=== PATIENT | female | born 1955 | race American Indian/Alaskan Native ===

== ENCOUNTER 2016-10-30 08:13 | Outpatient (CLI) | payer BC ==
--- NOTE | 2016-10-30 16:07 | Cat Scan Report ---
CT LUMBAR SPINE WITHOUT CONTRAST: 10/30/16 08:13:00 CLINICAL: Abnormal plain film with a right pedicle abnormality. I do not know the specific level. TECHNIQUE: Volumetric acquisition and 1.25-mm axial scan reconstructions without contrast. Sagittal and coronal reformats were performed. FINDINGS: Normal vertebral body height, alignment and disk spaces. No fracture or subluxation.The pedicles are intact at all levels with no lesion identified. L1-2:Intact disc. There are is an accessory articulation on the left side between the inferior left T12 and superior left L1 facet. This is best identified on the coronal reformat. L2-3:Intact disc. Mild bilateral facet hypertrophy. L3-4:Mild circumferential disc bulge. Bilateral facet hypertrophy and facet joint vacuum disc phenomenon. A degenerative cyst of the right superior L4 facet. L4-5:A moderate sized broad-based central and right foraminal disc protrusion with obliteration of the right neural foramen. Bilateral facet hypertrophy and facet joint vacuum disc phenomenon. L5-S1:Intact. IMPRESSION: 1. No pedicle abnormality identified. 2. Bilateral facet joint arthropathy from L3-4 through L4-5. 3. A moderate sized broad-based central and right foraminal disc protrusion at L4-5 with obliteration of the right neural foramen. 4. 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
== END 2016-10-30 08:14 | disposition home or self-care (01) ==
LOC: SPVIMAG 08:13
PROVIDERS: ATTEND Internal Medicine Rheumatology
DX: M51.26 Other intervertebral disc displacement, lumbar region (principal); M12.88 Other specific arthropathies, not elsewhere classified, other specified site
CPT/HCPCS: 72131

== ENCOUNTER 2016-11-07 14:32 | Outpatient (CLI) | payer BC ==
--- NOTE | 2016-11-08 09:03 | Mammography Report ---
BILATERAL DIGITAL SCREENING MAMMOGRAM with CAD: 11/07/16 14:32:00 CLINICAL: Routine screening.History of bilateral cysts. COMPARISON:02/02/15 FINDINGS: There are bilateral scattered fibroglandular densities. Several new right upper and inner asymmetries require additional imaging.No architectural distortion or suspicious calcifications.The left breast is negative. IMPRESSION: Right asymmetries requiring further workup. BI-RADS CATEGORY: 0 -- Additional Imaging Evaluation Required RECOMMENDATION: Recall for right lateralmedial , spot compression CC and MLO views and right breast ultrasound if needed. ACR BI-RADS MAMMOGRAPHIC CODES: 0 = Needs additional imaging evaluation; 1 = Negative; 2 = Benign; 3 = Probably benign; 4 = Suspicious; 5 = Malignant; 6 = Known biopsy-proven malignancy COMMENT: 1. Dense breast tissue, i.e., adenosis, fibrocystic changes, etc., may obscure an underlying neoplasm. 2. Approximately 10% of cancers are not detected with mammography. 3. A negative mammography report should not delay biopsy if a clinically suspicious mass is present. COMMENT: Patient follow-up letters are generated via our [employer] application.
== END 2016-11-07 14:33 | disposition home or self-care (01) ==
LOC: SPVWC 14:32
PROVIDERS: ATTEND Internal Medicine
DX: Z12.31 Encounter for screening mammogram for malignant neoplasm of breast (principal)
CPT/HCPCS: 77067; G0202

== ENCOUNTER 2016-12-24 08:32 | Outpatient (CLI) | payer BC ==
--- NOTE | 2016-12-24 09:41 | Ultrasound Report ---
RIGHT DIGITAL DIAGNOSTIC MAMMOGRAM and RIGHT BREAST ULTRASOUND: 12/24/16 08:32:00 CLINICAL: Recall for asymmetries. COMPARISON:11/07/16 screening FINDINGS: Spot compression views demonstrate persistent multiple circumscribed densities throughout the breast. Ultrasound of the right breast (including all four quadrants and the retroareolar area) was performed and demonstrated numerous benign cysts in all quadrants. The largest is a bilobed cyst at 11 o'clock 4 cm from the nipple measuring 1.0 x 0.6 x 0.6 cm. No solid mass. IMPRESSION: Benign cysts right breast. BI-RADS CATEGORY: 2 - - Benign RECOMMENDATION: Routine mammographic screening in one year. ACR BI-RADS MAMMOGRAPHIC CODES: 0 = Needs additional imaging evaluation; 1 = Negative; 2 = Benign; 3 = Probably benign; 4 = Suspicious; 5 = Malignant; 6 = Known biopsy-proven malignancy COMMENT: 1. Dense breast tissue, i.e., adenosis, fibrocystic changes, etc., may obscure an underlying neoplasm. 2. Approximately 10% of cancers are not detected with mammography. 3. A negative mammography report should not delay biopsy if a clinically suspicious mass is present. COMMENT: Patient follow-up letters are generated via our [employer] application.
== END 2016-12-24 08:33 | disposition home or self-care (01) ==
LOC: SPVWC 08:32
PROVIDERS: ATTEND Internal Medicine
DX: N60.01 Solitary cyst of right breast (principal); N63 Unspecified lump in breast; N64.89 Other specified disorders of breast
CPT/HCPCS: 76641; G0206

== ENCOUNTER 2018-07-27 10:37 | Outpatient (CLI) | payer BC ==
--- NOTE | 2018-07-27 13:27 | Mammography Report ---
BILATERAL DIGITAL SCREENING MAMMOGRAM with CAD: 07/27/18 10:37:00 CLINICAL: Routine screening.Previously confirmed cysts of the right breast. COMPARISON:11/07/16 and 12/24/16 FINDINGS: The breasts are heterogeneously dense, which may obscure small masses. A partially circumscribed right upper outer focal asymmetry requires additional imaging. Numerous circumscribed densities of the right breast correlate with previously confirmed cysts.No architectural distortion or suspicious calcifications.The left breast is negative. IMPRESSION: Right asymmetry requiring further workup. BI-RADS CATEGORY: 0 -- Additional Imaging Evaluation Required RECOMMENDATION: Recall for right spot magnification MLO and CC views and targeted right breast ultrasound. ACR BI-RADS MAMMOGRAPHIC CODES: 0 = Needs additional imaging evaluation; 1 = Negative; 2 = Benign; 3 = Probably benign; 4 = Suspicious; 5 = Malignant; 6 = Known biopsy-proven malignancy COMMENT: 1. Dense breast tissue, i.e., adenosis, fibrocystic changes, etc., may obscure an underlying neoplasm. 2. Approximately 10% of cancers are not detected with mammography. 3. A negative mammography report should not delay biopsy if a clinically suspicious mass is present. COMMENT: Patient follow-up letters are generated via our [employer] application.
== END 2018-07-27 10:38 | disposition home or self-care (01) ==
LOC: SPVWC 10:37
PROVIDERS: ATTEND Internal Medicine
DX: Z12.31 Encounter for screening mammogram for malignant neoplasm of breast (principal)
CPT/HCPCS: 77067

== ENCOUNTER 2019-02-24 09:30 | Outpatient (CLI) | payer BC ==
--- NOTE | 2019-02-24 10:48 | Ultrasound Report ---
RIGHT DIGITAL DIAGNOSTIC MAMMOGRAM WITHOUT CAD RIGHT LIMITED BREAST ULTRASOUND INDICATION: Recall for asymmetries. TECHNIQUE: Digital right mammographic imaging was performed. COMPARISON: 07/27/2018 FINDINGS: Breast Density: The breast is mostly fatty. Additional mammographic views were performed and include lateral, rolled CC and spot magnification ML O and CC views. Circumscribed densities persist on all views. Ultrasound Findings: Targeted ultrasound evaluation was performed of the area of interest. Scans of the upper outer right breast were performed and demonstrated multiple benign cysts and no solid mass or shadowing. A cluster of cysts is at 10:00 6 cm from the nipple and it measures 1.9 cm. It correla tesha with the mammographic asymmetry on the MLO view. A cyst at 10:00 8 cm from the nipple measures 9 mm and appears to correlate with the finding on the CC view. No solid mass or shadowing. IMPRESSION: Benign cysts and no suspicious finding. BI-RADS Category 2: Benign. Recommend routine screening mammography. A "normal" or negative report should not discourage follow up or biopsy of a clinically significant f inding. A written summary of these findings will be mailed to the patient. The patient will be entered into a mammography reporting system which will generate a reminder letter for the patient's next appointmen t at the appropriate interval. FURTHER INFORMATION: According to the [employer], yearly mammograms are recommend ed starting at age 40 and continuing as long as a woman is in good health. Breast MRI is recommended for women with an approximately 20-25% or greater lifetime risk of breast cancer, including women wi th a strong family history of breast or ovarian cancer and women who have been treated for Hodgkin's disease. Signer Name: Bobby Kramer MD Signed: 02/24/2019 10:43 AM Workstation Name: [id number]
== END 2019-02-24 09:31 | disposition home or self-care (01) ==
LOC: SPVWC 09:30
PROVIDERS: ATTEND Internal Medicine
DX: N60.01 Solitary cyst of right breast (principal)

== ENCOUNTER 2021-02-09 15:50 | Outpatient (CLI) | payer BC ==
--- NOTE | 2021-02-12 09:52 | Mammography Report ---
DIGITAL SCREENING MAMMOGRAM WITH CAD, 02/12/2021 CLINICAL INFORMATION / INDICATION: Routine screening mammography. SCREENING MAMMO Z12.31 TECHNIQUE: Digital bilateral 2D mammography was obtained in the craniocaudal and mediolateral obliqu e projections. This examination was interpreted with the benefit of Computer-Aided Detection analysis . COMPARISON: 07/21/2013 through 07/27/2018. FINDINGS: Breast Density: There are scattered areas of fibroglandular density. No dominant mass, suspicious calcifications, or architectural distortion in either breast. Asymmetric breast tissue and benign-appearing nodularity in the right breast have not changed. Normal ity is seen. IMPRESSION: No mammographic evidence of malignancy. Follow up recommendation: Routine yearly BI-RADS Category 2: Benign. A "normal" or negative report should not discourage follow up or biopsy of a clinically significant f inding. A written summary of these findings will be mailed to the patient. The patient will be entered into a mammography reporting system which will generate a reminder letter for the patient's next appointmen t at the appropriate interval. The [employer] recommends yearly mammograms starting at age 40 and continuing as l wilma as a woman is in good health. Breast MRI is recommended for women with an approximate 20-25% or greater lifetime risk of breast cancer, including women with a strong family history of breast or ova cande cancer or who have been treated for Hodgkin's disease. Signer Name: Eleazar Colvin MD Signed: 02/12/2021 9:48 AM Workstation Name: [id number]
== END 2021-02-09 15:51 | disposition home or self-care (01) ==
LOC: SPVWC 15:50
PROVIDERS: ATTEND Internal Medicine
DX: Z12.31 Encounter for screening mammogram for malignant neoplasm of breast (principal)
CPT/HCPCS: 77067